=== PATIENT | male | born 1975 | race Hispanic/Latino ===

== ENCOUNTER 2024-02-08 06:41 | Observation (INO) | payer SELFPAY ==
[2024-02-08 07:37] LABS: #Basophils Less than 0.03 10x3/uL (0.0-0.2); %Basophils 0.5 % (0.0-1.0); %Eosinophils 2.6 % (0.0-10.0); %Lymphocytes 14.5 % (21.0-51.0); %Monocytes 7.6 % (0.0-10.0); %Neutrophils 74.3 % (42.0-75.0); Hematocrit 35.6 % (42.0-52.0); Hemoglobin 12.9 g/dL (14.0-18.0); Mean Corpuscular HGB CONC 36.2 g/dL (32.0-36.0); Mean Corpuscular Hemoglobin 30.5 pg (27.0-31.0); Mean Corpuscular Volume 84.2 fL (78.0-98.0); Mean Platelet Volume 9.1 fL (7.4-10.4); Platelet Count 175 10x3/uL (130-400); RBC Distribution Width 12.6 % (11.5-14.5); Red Blood Cell (RBC) Count 4.23 mill/uL (4.70-6.10)
[2024-02-08 07:50] LABS: ALT (SGPT) 25 U/L (8-55); AST (SGOT) 24 U/L (5-34); Alkaline Phosphatase 81 U/L (40-110); Anion Gap 19 mmol/L (10-20); BUN (Urea Nitrogen) 14 mg/dL (8.9-20.6); Bilirubin, Total 0.7 mg/dL (0.2-1.2); Calc. Creatinine Clearance 0 mL/min (70-130); Calcium 8.9 mg/dL (7.8-10.44); Carbon Dioxide 15 mmol/L (22-29); Chloride 110 mmol/L (98-107); Estimated GFR 106; Glucose 134 mg/dL (70-105); Potassium 3.7 mmol/L (3.5-5.1); Sodium 140 mmol/L (136-145)
[2024-02-08] MEDS ORDERED: levETIRAcetam 500 MG (5 mL) VIAL ONE ×2 (08:29→21:10)
[2024-02-08] MEDS ORDERED: cefTRIAXone (ROCEPHIN) 1 GM VIAL ONE (08:58)
[2024-02-08] MEDS ORDERED: Acetaminophen 325 MG (10.15 ML) UDCUP ONE (08:58)
[2024-02-08] MEDS ORDERED: Acetaminophen 650 MG/20.3 ML UDCUP ONE (08:58)
[2024-02-08 12:19] LABS: Bacteria/HPF None Seen HPF (None Seen); Bilirubin Negative (Negative); Blood, Urine Trace (Negative); CAUTI Indications for Culture Alt mental st,lethar; Clarity Clear (Clear); Glucose, Urine (Dipstick) Normal (Negative); Ketone, Urine Negative (Negative); Leukocyte Negative Leu/uL (Negative); Nitrite Negative (Negative); Protein, Urine (Dipstick) 10 mg/dL (Neg-Trace); RBC/HPF 0-3 HPF (0-3); Specific Gravity, Urine 1.017 (1.002-1.036); Squamous Epithelial 0-3 HPF (0-3); WBC/HPF 0-3 HPF (0-3)
[2024-02-08 12:22] LABS: Urine Culture Reflex No No
[2024-02-08 12:30] LABS: Lactic Acid 1.75 mmol/L (0.5-2.2)
[2024-02-08] MEDS ORDERED: Acetaminophen 325 MG TAB PO PRN (12:47)
[2024-02-08] MEDS ORDERED: Acetaminophen 650 MG Suppository PR PRN (12:47)
[2024-02-08] MEDS ORDERED: Ondansetron ODT 4 MG TAB PO PRN (12:47)
[2024-02-08] MEDS: Sodium Chloride 0.9% 1,000 ML IV SCH (13:00)
[2024-02-08] MEDS: levETIRAcetam 500 MG (5 mL) VIAL SLOW IVP SCH (21:41)
[2024-02-09 02:03] VITALS: BMI 26.3
[2024-02-09 04:31] LABS: #Basophils Less than 0.03 10x3/uL (0.0-0.2); %Basophils 0.7 % (0.0-1.0); %Eosinophils 2.6 % (0.0-10.0); %Lymphocytes 33.5 % (21.0-51.0); %Neutrophils 51.8 % (42.0-75.0); Hemoglobin 10.2 g/dL (14.0-18.0); Mean Corpuscular HGB CONC 35.2 g/dL (32.0-36.0); Mean Corpuscular Hemoglobin 29.9 pg (27.0-31.0); Mean Platelet Volume 9.6 fL (7.4-10.4); Platelet Count 156 10x3/uL (130-400); RBC Distribution Width 12.3 % (11.5-14.5); Red Blood Cell (RBC) Count 3.41 mill/uL (4.70-6.10)
[2024-02-09 05:26] LABS: Anion Gap 11 mmol/L (10-20); BUN (Urea Nitrogen) 9 mg/dL (8.9-20.6); Calc. Creatinine Clearance 126 mL/min (70-130); Calcium 7.5 mg/dL (7.8-10.44); Carbon Dioxide 16 mmol/L (22-29); Chloride 111 mmol/L (98-107); Estimated GFR 112; Glucose 92 mg/dL (70-105); Potassium 3.4 mmol/L (3.5-5.1); Sodium 135 mmol/L (136-145)
[2024-02-09] MEDS ORDERED: Electrolyte Replacement Protocol FS PRN (08:30)
[2024-02-09] MEDS: Electrolyte Replacement Protocol 1 EACH FS ONE (12:13)
[2024-02-09] MEDS: FLU (Fluarix Triv) TS24-25(6MOS UP)/PF 45 MCG/0.5 ML Syringe IM ONE (12:15)
[2024-02-09] MEDS: Potassium Bicarbonate/Cit Ac 20 MEQ TAB PO SCH (15:16)
[2024-02-09 16:32] VITALS: BP 123/73; TEMP 99.5
== END 2024-02-09 17:36 | disposition home or self-care (01) ==
LOC: EDBD 06:41 → ERS 06:41 → ERHOLD 10:13 → PCU 02-09 01:38
PROVIDERS: ADMIT Family Medicine; ATTEND Internal Medicine
DX: G40.909 Epilepsy, unspecified, not intractable, without status epilepticus (principal); J10.1 Influenza due to other identified influenza virus with other respiratory manifestations; Z87.820 Personal history of traumatic brain injury; Z79.899 Other long term (current) drug therapy
CPT/HCPCS: 36415; 70450; 71045; 80048; 80053; 81001; 83605; 84146; 85025; 87040; 87400; 93005; 96374; 96375; 96376; G0378; J0696; J1953; J7030